=== PATIENT | female | born 1985 | race Caucasian/White ===

== ENCOUNTER 2017-11-15 16:50 | Emergency (ER) | payer SELFPAY ==
[~2017-11-15 16:50] MED LIST: BUPR-118; LOR5/325 PO; SERT-173 PO
[2017-11-15 16:54] VITALS: BP 106/68
--- NOTE | 2017-11-15 16:56 | ER Report ---
History and Physical Time Seen By MD: 16:56 HPI/ROS CHIEF COMPLAINT: Sunburn of the lower extremities bilaterally HISTORY OF PRESENT ILLNESS: Patient is a 32-year-old female here with complaints of bilateral lower extremity sunburn [id number]. Patient reportedly fell asleep in the sun for approximately a week ago. She reports that she has been applying vinegar to the sunburn without significant relief of symptoms. There is also edema of the ankles and pain with ambulation. Patient denies fevers, chills, signs of overt infection. Patient is neurovascularly intact distal to the burn site. Allergies: Coded Allergies: No Known Drug Allergies (Verified , 11/15/17) Home Meds Active Scripts Naproxen Sodium (ALEVE) 220 Mg Capsule, 440 MG PO Q12H for PAIN for 7 Days, #30 CAPSULE Prov:KARMAHELADIO Kimberly DO 11/15/17 Reported Medications Fluoxetine Hcl (PROZAC) 40 Mg Capsule, 40 MG PO QDAY, CAPSULE 11/15/17 Bupropion Hcl (Budeprion Xl) 150 Mg Tab.sr.24h, DAILY 08/14/11 Discontinued Reported Medications Acetaminophen/Hydrocodone (Lortab 5/325 Mg) 5 Mg/325 Mg Tab, 1 TAB PO Q4-6H no alcohl/driving 08/14/11 Sertraline Hcl (Zoloft) 100 Mg Tablet, 150 MG PO QDAY, 0 Refills 06/19/10 Hx Smoking: No Hx Substance Use Disorder: No Hx Alcohol Use: No Constitutional Vital Sign - Last 24 Hours 11/15/17 16:54 Temp 98.4 Pulse 76 Resp 18 B/P (MAP) 106/68 Pulse Ox 97 O2 Delivery Room Air Physical Exam General appearance: Mild distress due to pain Skin: Sunburn to the b/l LE below the knees Neuro: NV exam intact DIFFERENTIAL DIAGNOSIS: After history and physical exam differential diagnosis was considered for 1st/ 2nd degree sunburn Medical Decision Making ED Course/Re-evaluation ED Course 32-year-old female here with complaints of bilateral lower extremity sunburns without blistering which at the present for approximately one week after the patient fell asleep in the sun. She does have mild edema of the ankles bilaterally and neurovascular exam is intact distal to the burn sites. Patient was given scripts for naproxen and advised to take every 12 hours for inflammation and pain. Patient was also advised to apply ice for pain relief and edema control. Decision to Disposition Date: November 15, 2017 Decision to Disposition Time: 17:26 Depart Departure Latest Vital Signs Vital Signs Date Time Temp Pulse Resp B/P (MAP) Pulse Ox O2 Delivery O2 Flow Rate FiO2 11/15/17 16:54 98.4 76 18 106/68 97 Room Air Impression: Primary Impression: Sunburn Condition: Condition Unchanged Disposition: HOME OR SELF-CARE Referrals: FLAQUITO JETT PA-C (PCP) New Scripts Naproxen Sodium (ALEVE) 220 Mg Capsule 440 MG PO Q12H for PAIN for 7 Days, #30 CAPSULE Prov: HELADIO PARADA DO 11/15/17 Patient Instructions: Sunburn (ED) Additional Instructions: You may take 440 mg of naproxen every 12 hours as needed for pain and inflammation. Please apply ice or cool wet towels to the burn sites. HELADIO PARADA DO November 15, 2017 16:56
[2017-11-15] MEDS ORDERED: FLUO40CA76 PO (16:58)
[2017-11-15] MEDS ORDERED: NAPR220C12 PO (17:13)
== END 2017-11-15 17:28 | disposition home or self-care (01) ==
LOC: ER 16:52
DX: L55.9 Sunburn, unspecified (principal)
CPT/HCPCS: 99282

== ENCOUNTER 2018-11-02 19:32 | Inpatient (IN) | payer OTHER ==
[~2018-11-02] VITALS: Ht 160 cm; Wt 47.6 kg
[~2018-11-02 19:32] MED LIST changes: -FLUO-202 PO
--- NOTE | 2018-11-02 19:37 | ER Report ---
History and Physical Time Seen By MD: 19:37 HPI/ROS CHIEF COMPLAINT: tylenol overdose HISTORY OF PRESENT ILLNESS: This is a 33 year old female. She was brought to the ER by ambulance after Tylenol overdose. Took 30 of the 325mg tablets, new bot tle, 70 left. She says that this was an impulsive gesture. She has not been having suicidal thoughts. Written note and texts indicating she was trying to kill herself. She is not suicidal now. Ingestion about 1830 hours. Regret about the action now. [place] [employer] have her on an emergency senior care. She has no history of suicidal ideation in the past and no prior attempts. No other medicines taken, no other self harm behaviors. Take Prozac, Buproion, Naproxen on a regular basis. Impulsive decision after a stressful situation. REVIEW OF SYSTEMS: Constitutional: No fever or chills. Eyes: No vision changes. ENT: No sore throat. Cardiovascular: No chest pain. Respiratory: No cough. No shortness of breath. Gastrointestinal: No abdominal pain. No nausea or vomiting. Genitourinary: No problems with urination. Musculoskeletal: No pain. Skin: No rashes. Neurological: No numbness. No weakness. Allergies: Coded Allergies: No Known Drug Allergies (Verified , 11/02/18) Home Meds Active Scripts Naproxen Sodium (ALEVE) 220 Mg Capsule, 440 MG PO Q12H for PAIN for 7 Days, #30 CAPSULE Prov:HELADIO PARADA DO 11/15/17 Reported Medications Fluoxetine Hcl (PROZAC) 40 Mg Capsule, 40 MG PO QDAY, CAPSULE 11/15/17 Bupropion Hcl (Budeprion Xl) 150 Mg Tab.sr.24h, DAILY 08/14/11 Reviewed Nurses Notes: Yes Hx Smoking: No Hx Substance Use Disorder: No Hx Alcohol Use: No Constitutional Vital Sign - Last 24 Hours 11/02/18 11/02/18 11/02/18 11/02/18 19:32 19:35 19:36 19:40 Temp 99.4 Pulse ??? 82 Resp 11 B/P (MAP) 114/67 111/70 (84) 110/67 (81) Pulse Ox 92 O2 Delivery Room Air 11/02/18 11/02/18 11/02/18 11/02/18 19:47 19:56 20:00 20:02 Pulse ??? 81 B/P (MAP) 114/67 (83) 108/69 (82) Pulse Ox 93 11/02/18 11/02/18 11/02/18 11/02/18 20:17 20:20 20:32 20:40 Pulse 78 76 B/P (MAP) 107/62 (77) 103/69 (80) Pulse Ox 98 98 11/02/18 11/02/18 11/02/18 11/02/18 20:47 21:00 21:02 21:17 Pulse 75 76 85 Resp 18 21 B/P (MAP) 97/64 (75) Pulse Ox 98 97 95 11/02/18 11/02/18 11/02/18 11/02/18 21:20 21:25 21:40 21:55 Pulse 83 83 78 Resp 16 18 41 B/P (MAP) 104/66 (79) 98/65 (76) Pulse Ox 94 94 95 11/02/18 11/02/18 11/02/18 11/02/18 22:00 22:10 22:20 22:25 Pulse 85 83 B/P (MAP) 108/63 (78) 93/61 (72) Pulse Ox 90 91 11/02/18 11/02/18 11/02/18 11/02/18 22:40 22:55 23:00 23:10 Pulse 86 91 87 B/P (MAP) 98/66 (77) 83/48 (60) Pulse Ox 93 91 90 11/02/18 11/02/18 11/02/18 23:20 23:25 23:40 Pulse 76 87 B/P (MAP) 82/49 (60) 95/53 (67) Pulse Ox 90 89 Physical Exam General Appearance: The patient is alert. No acute distress. Eyes: Pupils are equal, round. No pallor, injection or icterus. ENT: Mucous membranes are moist. Normal oral mucosa. Posterior oropharynx is normal. Neck: Supple and non tender. Respiratory: Lungs are clear to auscultation. Cardiovascular: Regular rate and rhythm. No murmurs, gallops or rubs. Normal capillary refill. Gastrointestinal: Abdomen is soft and non tender. Nondistended. Normal active bowel sounds. Neurological: Alert and oriented x3. No focal neurologic deficits in the extremities. Skin: Warm and dry. No rashes. Musculoskeletal: Extremities are nontender. Full range of motion. DIFFERENTIAL DIAGNOSIS: After history and physical exam, differential diagnosis was considered for Tylenol overdose, emergency senior care Medical Decision Making Data Points Result Diagram: 11/02/18192611/02/181926 Laboratory Hematology Test 11/02/18 19:27 11/02/18 20:16 Red Blood Count 5.85 M/uL (4.17-5.56) Mean Corpuscular Volume 82.8 fL (80.0-96.0) Mean Corpuscular Hemoglobin 28.0 pg (26.0-33.0) Mean Corpuscular Hemoglobin Concent 33.8 g/dL (32.0-36.0) Red Cell Distribution Width 14.3 % (11.5-14.5) Mean Platelet Volume 8.7 fL (7.2-11.1) Neutrophils (%) (Auto) 69.2 % (39.4-72.5) Lymphocytes (%) (Auto) 20.6 % (17.6-49.6) Monocytes (%) (Auto) 8.9 % (4.1-12.4) Eosinophils (%) (Auto) 0.6 % (0.4-6.7) Basophils (%) (Auto) 0.7 % (0.3-1.4) Nucleated RBC Relative Count (auto) 0.0 /100WBC Neutrophils # (Auto) 6.3 K/uL (2.0-7.4) Lymphocytes # (Auto) 1.9 K/uL (1.3-3.6) Monocytes # (Auto) 0.8 K/uL (0.3-1.0) Eosinophils # (Auto) 0.1 K/uL (0.0-0.5) Basophils # (Auto) 0.1 K/uL (0.0-0.1) Nucleated RBC Absolute Count (auto) 0.00 K/uL Sodium Level 142 mmol/L (137-145) Potassium Level 3.5 mmol/L (3.5-5.0) Chloride Level 106 mmol/L (98-107) Carbon Dioxide Level 27 mmol/L (22-31) Blood Urea Nitrogen 13 mg/dl (7-18) Creatinine 0.70 mg/dl (0.52-1.04) Glomerular Filtration Rate Calc > 60.0 Random Glucose 93 mg/dl (75-110) Calcium Level 9.7 mg/dl (8.4-10.2) Magnesium Level 2.2 mg/dl (1.7-2.2) Total Bilirubin 0.5 mg/dl (0.2-1.3) Aspartate Amino Transf (AST/SGOT) 22 U/L (0-35) Alanine Aminotransferase (ALT/SGPT) 15 U/L (0-56) Alkaline Phosphatase 66 U/L (0-126) Total Protein 7.9 g/dl (6.3-8.2) Albumin 4.9 g/dl (3.5-5.0) Salicylates Level < 10 mg/L Salicylate Last Dose Date unk Serum Alcohol < 10 mg/dl Urine Color Yellow Urine Clarity Clear Urine pH 5.0 pH (4.8-9.5) Urine Specific [place] 1.013 Urine Protein Negative mg/dL (NEGATIVE) Urine Glucose (UA) Negative mg/dL (NEGATIVE) Urine Ketones Negative mg/dL (NEGATIVE) Urine Blood Negative (NEGATIVE) Urine Nitrite Negative (NEGATIVE) Urine Bilirubin Negative (NEGATIVE) Urine Urobilinogen Negative mg/dL (0.2-1.9) Urine Leukocyte Esterase Negative (NEGATIVE) Urine RBC 2 /HPF (0-2/HPF) Urine WBC 3 /HPF (0-5/HPF) Urine Squamous Epithelial Cells Many /LPF (</=FEW) Urine Bacteria Few /HPF (NONE-FEW) Urine Mucus Few /HPF (NONE-FEW) Urine HCG, Qualitative Negative (NEGATIVE) Urine Opiates Screen Negative Urine Barbiturates Screen Negative Ur Tricyclic Antidepressants Screen Negative Urine Phencyclidine Screen Negative Urine Amphetamines Screen Negative Urine Benzodiazepines Screen Negative Urine Cocaine Screen Negative Urine Cannabinoids Screen Negative Chemistry Test 11/02/18 19:27 11/02/18 20:16 White Blood Count 9.1 k/uL (4.5-11.0) Red Blood Count 5.85 M/uL (4.17-5.56) Hemoglobin 16.4 g/dL (12.0-16.0) Hematocrit 48.4 % (34.0-47.0) Mean Corpuscular Volume 82.8 fL (80.0-96.0) Mean Corpuscular Hemoglobin 28.0 pg (26.0-33.0) Mean Corpuscular Hemoglobin Concent 33.8 g/dL (32.0-36.0) Red Cell Distribution Width 14.3 % (11.5-14.5) Platelet Count 316 K/uL (150-450) Mean Platelet Volume 8.7 fL (7.2-11.1) Neutrophils (%) (Auto) 69.2 % (39.4-72.5) Lymphocytes (%) (Auto) 20.6 % (17.6-49.6) Monocytes (%) (Auto) 8.9 % (4.1-12.4) Eosinophils (%) (Auto) 0.6 % (0.4-6.7) Basophils (%) (Auto) 0.7 % (0.3-1.4) Nucleated RBC Relative Count (auto) 0.0 /100WBC Neutrophils # (Auto) 6.3 K/uL (2.0-7.4) Lymphocytes # (Auto) 1.9 K/uL (1.3-3.6) Monocytes # (Auto) 0.8 K/uL (0.3-1.0) Eosinophils # (Auto) 0.1 K/uL (0.0-0.5) Basophils # (Auto) 0.1 K/uL (0.0-0.1) Nucleated RBC Absolute Count (auto) 0.00 K/uL Glomerular Filtration Rate Calc > 60.0 Calcium Level 9.7 mg/dl (8.4-10.2) Magnesium Level 2.2 mg/dl (1.7-2.2) Total Bilirubin 0.5 mg/dl (0.2-1.3) Aspartate Amino Transf (AST/SGOT) 22 U/L (0-35) Alanine Aminotransferase (ALT/SGPT) 15 U/L (0-56) Alkaline Phosphatase 66 U/L (0-126) Total Protein 7.9 g/dl (6.3-8.2) Albumin 4.9 g/dl (3.5-5.0) Salicylates Level < 10 mg/L Salicylate Last Dose Date unk Serum Alcohol < 10 mg/dl Urine Color Yellow Urine Clarity Clear Urine pH 5.0 pH (4.8-9.5) Urine Specific [place] 1.013 Urine Protein Negative mg/dL (NEGATIVE) Urine Glucose (UA) Negative mg/dL (NEGATIVE) Urine Ketones Negative mg/dL (NEGATIVE) Urine Blood Negative (NEGATIVE) Urine Nitrite Negative (NEGATIVE) Urine Bilirubin Negative (NEGATIVE) Urine Urobilinogen Negative mg/dL (0.2-1.9) Urine Leukocyte Esterase Negative (NEGATIVE) Urine RBC 2 /HPF (0-2/HPF) Urine WBC 3 /HPF (0-5/HPF) Urine Squamous Epithelial Cells Many /LPF (</=FEW) Urine Bacteria Few /HPF (NONE-FEW) Urine Mucus Few /HPF (NONE-FEW) Urine HCG, Qualitative Negative (NEGATIVE) Urine Opiates Screen Negative Urine Barbiturates Screen Negative Ur Tricyclic Antidepressants Screen Negative Urine Phencyclidine Screen Negative Urine Amphetamines Screen Negative Urine Benzodiazepines Screen Negative Urine Cocaine Screen Negative Urine Cannabinoids Screen Negative Toxicology Test 11/02/18 19:27 11/02/18 20:16 Salicylates Level < 10 mg/L Salicylate Last Dose Date unk Serum Alcohol < 10 mg/dl Urine Opiates Screen Negative Urine Barbiturates Screen Negative Ur Tricyclic Antidepressants Screen Negative Urine Phencyclidine Screen Negative Urine Amphetamines Screen Negative Urine Benzodiazepines Screen Negative Urine Cocaine Screen Negative Urine Cannabinoids Screen Negative Urinalysis Test 11/02/18 20:16 Urine Color Yellow Urine Clarity Clear Urine pH 5.0 pH (4.8-9.5) Urine Specific [place] 1.013 Urine Protein Negative mg/dL (NEGATIVE) Urine Glucose (UA) Negative mg/dL (NEGATIVE) Urine Ketones Negative mg/dL (NEGATIVE) Urine Blood Negative (NEGATIVE) Urine Nitrite Negative (NEGATIVE) Urine Bilirubin Negative (NEGATIVE) Urine Urobilinogen Negative mg/dL (0.2-1.9) Urine Leukocyte Esterase Negative (NEGATIVE) Urine RBC 2 /HPF (0-2/HPF) Urine WBC 3 /HPF (0-5/HPF) Urine Squamous Epithelial Cells Many /LPF (</=FEW) Urine Bacteria Few /HPF (NONE-FEW) Urine Mucus Few /HPF (NONE-FEW) Urine HCG, Qualitative Negative (NEGATIVE) EKG/Imaging EKG Interpretation 12 lead EKG: November 02 at 1944 hrs. Rhythm: Sinus rhythm, short MO, rate 80 [place]: normal QRS: normal other than low-voltage ST segments: Nonspecific flattening, no ST elevation or depression noted 12 lead EKG: November 03 at 00:02 hours Rhythm: normal sinus rhythm, rate 78 Otherwise unchanged ED Course/Re-evaluation Clinical Indication for ER IV: Hydration, IV Access ED Course Initially patient was given activated charcoal. IV started. EKG obtained which is negative. Labs unremarkable with undetectable Tylenol and no other problems noted. Repeat labs at the four-hour reji showed elevated Tylenol level but not above the treatment line on the [employer] [place] nomogram. I did upholding the senior care started by [facility]. Discussed the case with our hospitalist, who agreed to admit the patient the ICU. Decision to Disposition Date: November 02, 2018 Decision to Disposition Time: 23:30 Depart Departure Latest Vital Signs Vital Signs Date Time Temp Pulse Resp B/P (MAP) Pulse Ox O2 Delivery O2 Flow Rate FiO2 11/02/18 23:40 87 95/53 (67) 89 11/02/18 21:55 41 11/02/18 19:35 99.4 Room Air Impression: Primary Impression: Tylenol overdose Additional Impression: Depression Condition: Condition Unchanged Disposition: Admitted from ER Problem Qualifiers Primary Impression: Tylenol overdose Encounter type: initial encounter Injury intent: intentional self-harm Qualified Codes: T39.1X2A - Poisoning by 4-aminophenol derivatives, intentional self-harm, initial encounter Additional Impression: Depression Depression Type: unspecified Qualified Codes: F32.9 - Major depressive disorder, single episode, unspecified MINGO YI MD November 02, 2018 19:37
[2018-11-02] MEDS ORDERED: NS(*) 0.9% 1000 ML BAG 1,000 ML IV ONE (19:38)
[2018-11-02] MEDS ORDERED: CHARCOAL ACT LIQ 25 GM/120 ML PO ONE (19:40)
[2018-11-02 19:53] LABS: PLATELET COUNT, AUTOMATED 316 K/uL (150-450)
--- NOTE | 2018-11-02 20:02 | EKG ---
FACILITY: [facility] PATIENT NAME: QUINTIN HUNTER : [id number] MR: [id number] V: [id number] EXAM DATE: ORDERING PHYSICIAN: MINGO YI TECHNOLOGIST: WATSON Test Reason : OD Blood Pressure : / mmHG Vent. Rate : 080 BPM Atrial Rate : 080 BPM P-R Int : 108 ms QRS Dur : 084 ms QT Int : 366 ms P-R-T Axes : 023 014 043 degrees QTc Int : 422 ms Sinus rhythm with short [place] Septal infarct , age undetermined Abnormal ECG No previous ECGs available Confirmed by Donte Sanchez ([id number]) on 11/03/2018 7:28:55 AM Referred By: Confirmed By:Donte Hendricks
--- NOTE | 2018-11-02 20:57 | BHS - Psychiatric Evaluation ---
ER - Title 25 MHE Evaluation Title 25 Evaluation Patient Detained By: Law Enforcement Referral Source: Law enforcement, family/friends Date Patient Detained: November 02, 2018 Time Patient Detained: 19:45 Date Longterm Expires: November 07, 2018 Time Longterm Expires: 19:45 Legal Status: Police Hold: No Legal Status: Residence: State Resident, Student Assessment Data Provided By: Patient, Law Enforcement, Other Source (notes/ texts) HPI/ROS: This is a 33 year old female. She was brought to the ER by ambulance after Tylenol overdose. Took 30 of the 325mg tablets, new bottle, 70 left. She says that this was an impulsive gesture. She has not been having suicidal thoughts. Written note and texts indicating she was trying to kill herself. She is not suicidal now. Ingestion about 1830 hours. Regret about the action now. [place] [employer] have her on an emergency fpc. She has no history of suicidal ideation in the past and no prior attempts. No other medicines taken, no other self harm behaviors. Take Prozac, Buproion, Naproxen on a regular basis. Impulsive decision after a stressful situation. Admit due to SI or Attempt: Yes Suicide Plan: Has Plan with Access Alcohol or Drugs Involved: No Is Patient Info Reliable: Yes Is Collateral Info Reliable: Yes Mental Status Exam General Appearance: Good Eye Contact, Cooperative, Polite, Good Interaction, Tearful Speech: Clear, Spontaneous, Normal Rate, Normal Rhythm, Normal Volume, Normal Tone Mood: Dysthmic/Depressed Affect: Calm, Sad, Tearful Thought Process: Logical Thought Content: No Suicidal Ideation, No Homicidal Ideation Sensorium: Clear Cognition: Alert & Oriented-Person, Alert & Oriented-Place, Alert & Oriented- Time, [id number]-[id number] Memory: Other (Normal) Insight Judgment: Intact, Appropriate Hallucinations: Denies Delusions: Denies Current Risk & History Current Dangerous Risk Assessm: Self-Injurious Behaviors Past Dangerous Risk Assessm: Self-Injurious Behaviors Previous Suicide Attempt: No Previous Attempt Previous Psychiatric Illness: Yes Previous Diagnosis/Treatment: Depression and anxiety Previous Psychiatric Treatment: Yes Previous Treatment Description Prozac, Bupropion Risk Assessment & Disposition Evaluated Risk Assessment: Based on above, felt high risk and will admit medical for further treatment with behavioral health evaluation tomorrow. Impression: Primary Impression: Tylenol overdose Meets Mental Illness Req.: Yes Meets Dangerousness Req.: Yes Emergency Longterm to be: Upheld Date of Decision: November 02, 2018 Time of Decision: 20:57 Patient is Medically Stable at: No Disposition: ICU Problem Qualifiers Primary Impression: Tylenol overdose Encounter type: initial encounter Injury intent: intentional self-harm Qualified Codes: T39.1X2A - Poisoning by 4-aminophenol derivatives, intentional self-harm, initial encounter MINGO YI MD November 02, 2018 20:57
[2018-11-03] VITALS (27 sets, daily range): BP systolic 73–124; BP diastolic 49–79; Ht 160 cm; Wt 47.6 kg
--- NOTE | 2018-11-03 00:13 | EKG ---
FACILITY: [facility] PATIENT NAME: QUINTIN HUNTER : [id number] MR: [id number] V: [id number] EXAM DATE: ORDERING PHYSICIAN: MINGO YI TECHNOLOGIST: WATSON Test Reason : REPEAT EKG Blood Pressure : / mmHG Vent. Rate : 078 BPM Atrial Rate : 078 BPM P-R Int : 124 ms QRS Dur : 078 ms QT Int : 366 ms P-R-T Axes : 075 001 047 degrees QTc Int : 417 ms Normal sinus rhythm Low voltage QRS Borderline ECG When compared with ECG of 02-NOV-2018 19:44, Criteria for Septal infarct are no longer present Confirmed by Donte Sanchez ([id number]) on 11/03/2018 7:34:30 AM Referred By: Confirmed By:Donte Hendricks
[2018-11-03] MEDS ORDERED: NS(*) 0.9% 1000 ML BAG 1,000 ML IV PRN (00:36)
--- NOTE | 2018-11-03 00:36 | History & Physical ---
History of Present Illness Chief Complaint tylenol overdose History of Present Illness 33F presented after ingesting Tylenol in attempt at self harm. PMHx significant for depression, no previous report of self harm. Reports taking 30 tablets of 3 25mg acetaminophen at 1830 this evening in spontaneous act. Denies previous suicidal ideation or attempts, text messages with self harm statements were reportedly recovered by EMS and police. Now reports regret and denies suicidal thoughts. Initial level was negative 4 hour level 113, this is below the treatment threshold. She was admitted for monitoring and will likely transfer to [facility] tomorrow. History Problems: (1) Depression Home Meds Active Scripts Naproxen Sodium (ALEVE) 220 Mg Capsule, 440 MG PO Q12H for PAIN for 7 Days, #30 CAPSULE Prov:HELADIO PARADA DO 11/15/17 Reported Medications Fluoxetine Hcl (PROZAC) 40 Mg Capsule, 40 MG PO QDAY, CAPSULE 11/15/17 Bupropion Hcl (Budeprion Xl) 150 Mg Tab.sr.24h, DAILY 08/14/11 Allergies: Coded Allergies: No Known Drug Allergies (Verified , 11/02/18) Hx Smoking: No Hx Alcohol Use: No Review of Systems Cardiovascular: No Chest Pain Respiratory: No Shortness of Breath Gastrointestinal: No Nausea, No Vomiting Exam Vital Signs Vital Signs Date Time Temp Pulse Resp B/P (MAP) Pulse Ox O2 Delivery O2 Flow Rate FiO2 11/02/18 23:40 87 95/53 (67) 89 11/02/18 21:55 41 11/02/18 19:35 99.4 Room Air General Appearance: Alert, Awake, No Acute Distress, Afebrile Neuro: No Gross deficits Cardiovascular: Normal Rhythm & Peripheral Pulses Respiratory: No Respiratory Distress GI: Abd Soft and Non-Tender Musculoskeletal: No Weakness/Pain Extremities: Soft and Non Tender, Warm, Pulses, Perfused; No Edema Medical Decision Making Data Points Result Diagram: 11/02/18192611/02/181926 EKG / Imaging EKG Interpretation NSR Assessment and Plan Problems: (1) Tylenol overdose Status: Acute Assessment & Plan: Ingestion 1830 prior to admission, negative level initially 113 at 4 hour reji. Below treatment threshold. Will recheck level in 4 hours to ensure peak level was captured. Anticipate discharge to [facility] tomorrow. She is theo rgency detained, monitor in ICU. (2) Depression Assessment & Plan: Evaluation pending from [facility]. Venous Thromboembolism Antithrombotics Is Pt On Any Antithrombotics?: No Prophylaxis Tx Contraindicated Pharmacological Contraindicati: Pt at Low Risk for VTE (early ambulation) Exam Sepsis Risk: No Definite Risk Problem Qualifiers (1) Tylenol overdose: Encounter type: initial encounter Injury intent: intentional self-harm Qualified Codes: T39.1X2A - Poisoning by 4-aminophenol derivatives, intentional self-harm, initial encounter BRO STONE DO November 03, 2018 00:36
[2018-11-03] MEDS ORDERED: FLUSH 10 ML SYR IVP PRN (00:40)
--- NOTE | 2018-11-03 08:25 | Hospitalist Progress Note ---
Subjective Progress Notes Subjective She denies any complaints this AM. No abdominal pain/N/V. Physical Exam Vital Signs Date Time Temp Pulse Resp B/P (MAP) Pulse Ox O2 Delivery O2 Flow Rate FiO2 11/03/18 06:28 56 11/03/18 06:00 88/66 (73) Room Air 11/03/18 05:00 16 94 11/03/18 00:30 98.7 General Appearance: Alert, Awake Cardiovascular: Regular Rate and Rhythm Respiratory: Clear to Auscultation GI: Soft and Non-Tender (BS present) Extremities: Warm, Perfused Psych: Alert & Oriented X3 Result Diagram: 11/02/18 1927 11/03/18 0300 Item Value Date Time Albumin 3.1 g/dl L 11/03/18 0300 Total Protein 5.2 g/dl L 11/03/18 0300 Alkaline Phosphatase 51 U/L 11/03/18 0300 Alanine Aminotransferase (ALT/SGPT) 19 U/L 11/03/18 0300 Aspartate Amino Transf (AST/SGOT) 12 U/L 11/03/18 0300 Total Bilirubin 0.3 mg/dl 11/03/18 0300 Calcium Level 8.6 mg/dl 11/03/18 0300 Acetaminophen Level 72 ug/ml 11/03/18 0300 Acetaminophen Level 113 ug/ml *H 11/02/182234 Assessment and Plan Problems: (1) Tylenol overdose Status: Acute Assessment & Plan: Ingestion at 1830hrs yesterday, which was approximately one hour prior to admission - her level was negative initially. Her second level was 113 at 4 hour reji, which was below treatment threshold. Her 8-8.5 hour level, however, was 72 and placed her in potentially toxic zone. She has been started on IV Mucomyst to cover for the possibility. She is emergency detained, monitor in ICU. Will have Psychiatry see. (2) Depression Assessment & Plan: Will discuss with Psychiatry. She has been on fluoxetine and bupropion. Exam Sepsis Risk: No Definite Risk Problem Qualifiers (1) Tylenol overdose: Encounter type: initial encounter Injury intent: intentional self-harm Qualified Codes: T39.1X2A - Poisoning by 4-aminophenol derivatives, intentional self-harm, initial encounter (2) Depression: Depression Type: unspecified Qualified Codes: F32.9 - Major depressive disorder, single episode, unspecified JOJO BHATTI MD November 03, 2018 08:25
[2018-11-03] MEDS ORDERED: D5W IV ONE ×3 (08:30→13:30)
[2018-11-03] MEDS ORDERED: ACETYLCYS IV ONE ×3 (08:30→13:30)
[2018-11-03 18:32] LABS: INR 1.07
[2018-11-04] VITALS (11 sets, daily range): BP systolic 84–109; BP diastolic 59–78
[2018-11-04 05:24] LABS: PLATELET COUNT, AUTOMATED 247 K/uL (150-450)
--- NOTE | 2018-11-04 20:41 | Hospitalist Depart ---
Discharge Summary Reason for Hosp/Final Diag: (1) Tylenol overdose Status: Acute Hospital Course & Plan: Ingestion at 1830hrs prior to admission, which was approximately one hour prior to admission - her level was negative initially. Her second level was 113 at 4 hour reji, which was below treatment threshold. Her 8-8.5 hour level, however, was 72 and placed her in potentially toxic zone. Completed IV Mucomyst to cover for the possibility. Medically stable transferred to [facility]. (2) Depression Hospital Course & Plan: She has been on fluoxetine and bupropion previously, defer to [facility]. Departure Weight (Pounds): 105 Result Diagram: 11/04/1845511/04/18455 Condition: Improved Discharge Instructions Home Meds Discontinued Reported Medications Fluoxetine Hcl (PROZAC) 40 Mg Capsule, 40 MG PO QDAY, CAPSULE 11/15/17 Bupropion Hcl (Budeprion Xl) 150 Mg Tab.sr.24h, DAILY 08/14/11 Discontinued Scripts Naproxen Sodium (ALEVE) 220 Mg Capsule, 440 MG PO Q12H for PAIN for 7 Days, #30 CAPSULE Prov:HELADIO PARADA DO 11/15/17 Diet: Regular Activity: As Tolerated Venous Thromboembolism Antithrombotics Is Pt On Any Antithrombotics?: No Problem Qualifiers (1) Tylenol overdose: Encounter type: initial encounter Injury intent: intentional self-harm Qualified Codes: T39.1X2A - Poisoning by 4-aminophenol derivatives, intentional self-harm, initial encounter (2) Depression: Depression Type: unspecified Qualified Codes: F32.9 - Major depressive disorder, single episode, unspecified BRO STONE DO November 04, 2018 20:41
== END 2018-11-04 10:45 | DRG 918 ==
LOC: ER 19:46 → ICU 11-03 00:01
PROVIDERS: ADMIT Internal Medicine; ATTEND Internal Medicine
DX: T39.1X2A Poisoning by 4-Aminophenol derivatives, intentional self-harm, initial encounter (principal); F32.9 Major depressive disorder, single episode, unspecified
CPT/HCPCS: 36415; 80305; 80320; 80329; 81001; 81025; 82040; 82247; 82310; 82374; 82435; 82565; 82947; 83735; 84075; 84132; 84155; 84295; 84443; 84450; 84460; 84520; 85025; 85610; 93005; 99284; J0132; J7030; J7060; J7070

== ENCOUNTER → 2018-11-02 | Outpatient (CLI) | payer SELFPAY ==
[~2018-11-02] MED LIST changes: +FLUO-202 PO; +FLUO40CA76 PO; +NAPR220C12 PO
[2018-11-03 09:30] VITALS: BMI 18.6
== END ==
LOC: AMB 19:18
PROVIDERS: ATTEND Nurse Practitioner
DX: T39.1X2A Poisoning by 4-Aminophenol derivatives, intentional self-harm, initial encounter (principal)
CPT/HCPCS: A0425; A0427

== ENCOUNTER 2018-11-04 10:54 | Inpatient (IN) | payer OTHER ==
[2018-11-03 09:30] VITALS: Ht 160 cm; Wt 46.3 kg
[~2018-11-04] VITALS: Ht 160 cm; Wt 46.3 kg
[2018-11-04 10:55] VITALS: BP 102/72
[2018-11-04] MEDS ORDERED: MAG HYD/AL HYD/SIMETH 30ML UDC PO PRN (11:15)
--- NOTE | 2018-11-04 13:02 | NUR ---
ON 11.04.18 AT ABOUT 1300HRS, I WENT INTO [address] AND ASKED QUINTIN IF I COULD DO A PHYSICAL ASSESSMENT ON HER. SHE AGREED. I ASKED HER TO SIT AT THE EDGE OF THE BED AND BEGAN TO LISTEN TO HER POSTERIOR LUNGS, I LISTENED IN THREE PLACES RIGHT & LEFT UPPER & RIGHT MIDDLE, WHEN SHE SUDDENLY ACTED IF SHE WERE REVOLTED AND BLURTED OUT "I DON'T LIKE MEN." I STOPPED MY ASSESSMENT AND SAID "OKAY, I WILL HAVE THE ONCOMING NURSE DO THE ASSESSMENT." I WAS HEADING FOR THE DOOR I ASKED QUINTIN TWICE IF THERE WAS ANYTHING I COULD DO FOR HER. SHE REFUSED TO SPEAK WITH ME ANY FURTHER.
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
[2018-11-04 20:23] VITALS: BP 89/62
[2018-11-05 05:52] VITALS: BP 98/74
--- NOTE | 2018-11-05 07:03 | EKG ---
FACILITY: [facility] PATIENT NAME: QUINTIN HUNTER : [id number] MR: [id number] V: [id number] EXAM DATE: ORDERING PHYSICIAN: CHANO ALBA TECHNOLOGIST: GERMÁN Test Reason : OD Blood Pressure : / mmHG Vent. Rate : 058 BPM Atrial Rate : 058 BPM P-R Int : 132 ms QRS Dur : 074 ms QT Int : 412 ms P-R-T Axes : 064 007 038 degrees QTc Int : 404 ms Sinus bradycardia Low voltage QRS Borderline ECG When compared with ECG of 03-NOV-2018 00:02, No significant change was found Confirmed by Donte Sanchez ([id number]) on 11/05/2018 8:02:23 AM Referred By: PARTH Confirmed By:Donte Hendricks
[2018-11-05] MEDS: MULTIVITAMINS PO SCH (08:40)
--- NOTE | 2018-11-05 09:43 | BHS Progress Note ---
[facility] - Subjective Progress Notes Subjective "I don't like mornings." Agrees w/meeting with team in treatment team room Poor to fair eye contact, irritable Rating depression and anxiety 7/10 Denies suicidal or homicidal ideation Denies anger or mood swings Sleep sufficient, states was woken up last night Reports Fluoxetine last taken one year ago with reported benefit Suicidal Ideation: None Homicidal Ideation: None [facility] - Objective Physical Exam Vital Signs Vital Signs Date Time Temp Pulse Resp B/P (MAP) Pulse Ox O2 Delivery O2 Flow Rate FiO2 11/05/18 05:52 98.9 84 15 98/74 (82) 96 Room Air Deferred Laboratory Tests 11/05/18 06:02 Laboratory Tests 11/05/18 06:02: Sodium Level 136, Potassium Level 3.8, Chloride Level 106, Carbon Dioxide Level 23, Blood Urea Nitrogen 17, Creatinine 0.70, Glomerular Filtration Rate Calc > 60.0, Random Glucose 81, Calcium Level 9.4, Total Bilirubin 0.5, Aspartate Amino Transf (AST/SGOT) 14, Alanine Aminotransferase (ALT/SGPT) 15, Alkaline Phosphatase 58, Total Protein 6.1, Albumin 3.8 Muscle Strength and Tone: WNL Gait and Station: Steady [facility] Medications Reviewed: Side Effects, Benefits of Medication, Risks Allergies Reviewed: Yes Mental Status Exam General Appearance: Well Groomed, Good Eye Contact (fair to poor eye contact ), Cooperative (irritable) Speech: Clear, Spontaneous, Normal Rate, Normal Rhythm, Normal Volume, Normal Tone Mood: Dysthmic/Depressed (depression 7/10) Affect: Calm, Sad, Flat, Withdrawn, Other (irritable) Thought Process: Organized, Logical, Goal Directed Thought Content: No Suicidal Ideation, No Homicidal Ideation Sensorium: Clear Cognition: Alert & Oriented-Person, Alert & Oriented-Place, Alert & Oriented- Time, Fhtmu-Zyiiwwgo-Uhtwkjnvx Memory: Immediate, Recent, Remote Intelligence: Average Insight Judgment: Fair Result Diagram: 11/05/18 0602 [facility] Assessment and Plan Fida-in-Fnaa Encounter Date: November 05, 2018 Iabl-mj-Yehu Encounter Time: 09:35 [facility] Plan: Admit to Unit, Necessary Precautions, Individual/Group Therapy, Admin/Titrate Meds Multpiple Antipsychotics Used: No Problems: (1) Adjustment disorder with mixed anxiety and depressed mood Status: Acute (2) Tylenol overdose Status: Acute (3) Depression Status: Chronic Condition Fluoxetine 20mg po every am, review risks, benefits, alternatives Maintain precautions Ongoing discharge planning MAI ARANGO NP November 05, 2018 09:43
[2018-11-05] MEDS: FLUoxetine HCL 20 MG CAP PO SCH (09:48)
[2018-11-05 13:45] VITALS: BP 86/56
[2018-11-05 23:05] VITALS: BP 93/68
[2018-11-06 06:26] VITALS: BP 85/58
[2018-11-06] MEDS: MULTIVITAMINS PO SCH (09:00)
[2018-11-06] MEDS: FLUoxetine HCL 20 MG CAP PO SCH (10:41)
--- NOTE | 2018-11-06 10:56 | BHS Progress Note ---
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 Discuss options for outpatient individual therapy and medication management Suicidal Ideation: None Homicidal Ideation: None [facility] - Objective Physical Exam Vital Signs Vital Signs Date Time Temp Pulse Resp B/P (MAP) Pulse Ox O2 Delivery O2 Flow Rate FiO2 11/06/18 06:26 97.4 65 85/58 (67) 94 Room Air 11/05/18 13:45 16 Muscle Strength and Tone: WNL Gait and Station: Steady [facility] Medications Reviewed: Side Effects, Benefits of Medication, Risks Allergies Reviewed: Yes Mental Status Exam General Appearance: Well Groomed, Good Eye Contact (fair to poor eye contact ), Cooperative (irritable) Speech: Clear, Spontaneous, Normal Rate, Normal Rhythm, Normal Volume, Normal Tone Mood: No Dysthmic/Depressed; Euthymic Affect: Full and Appropriate, Calm; No Sad, No Flat, No Withdrawn, No Other Thought Process: Organized, Logical, Goal Directed Thought Content: No Suicidal Ideation, No Homicidal Ideation Sensorium: Clear Cognition: Alert & Oriented-Person, Alert & Oriented-Place, Alert & Oriented- Time, Txavj-Fiztzdpc-Dqahetpme Memory: Immediate, Recent, Remote Intelligence: Average Insight Judgment: Intact, Appropriate; No Fair; Good Result Diagram: 11/05/18 0602 [facility] Medications (Trade) Dose Ordered Sig/Salima Route PRN Reason Start Time Stop Time Status Last Admin Dose Admin Fluoxetine HCl (PROzac 20 MG CAP (OR EQUIV)) 20 mg QDAY PO 11/05/18 09:30 12/05/18 09:29 11/06/18 10:41 [facility] Assessment and Plan Komf-fr-Grvb Encounter Date: November 06, 2018 Emjn-rb-Uvot Encounter Time: 10:54 [facility] Plan: Admit to Unit, Necessary Precautions, Individual/Group Therapy, Admin/Titrate Meds Multpiple Antipsychotics Used: No Problems: (1) Adjustment disorder with mixed anxiety and depressed mood Status: Acute (2) Tylenol overdose Status: Resolved (3) Depression Status: Chronic Condition Treatment team 11/07/18 Continue Fluoxetine 20mg po every am targeting depression/anxiety Maintain precautions MAI ARANGO NP November 06, 2018 10:56
[2018-11-06 13:10] VITALS: BP 94/58
[2018-11-06 18:10] VITALS: BP 96/58
[2018-11-07 05:07] VITALS: BP 98/73
[2018-11-07] MEDS: FLUoxetine HCL 20 MG CAP PO SCH (09:25)
[2018-11-07] MEDS ORDERED: FLUO-202 PO (09:43)
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
== END 2018-11-07 10:16 | disposition home or self-care (01) | DRG 881 ==
LOC: BHS 10:55
PROVIDERS: ADMIT Psychiatry & Neurology Psychiatry; ATTEND Psychiatry & Neurology Psychiatry
DX: F34.1 Dysthymic disorder (principal); R45.851 Suicidal ideations; F43.23 Adjustment disorder with mixed anxiety and depressed mood; T39.1X2A Poisoning by 4-Aminophenol derivatives, intentional self-harm, initial encounter; Z60.4 Social exclusion and rejection; Z62.810 Personal history of physical and sexual abuse in childhood; Z81.1 Family history of alcohol abuse and dependence; Z81.8 Family history of other mental and behavioral disorders
CPT/HCPCS: 36415; 82040; 82247; 82310; 82374; 82435; 82565; 82947; 84075; 84132; 84155; 84295; 84450; 84460; 84520; 93005